=== PATIENT | female | born 1995 | race Caucasian/White ===

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

== ENCOUNTER 2017-05-07 12:18 | Emergency (ER) | payer OTHER ==
[~2017-05-07] VITALS: Ht 154.9 cm; Wt 71.9 kg
[~2017-05-07 12:18] MED LIST changes: +CEPH-443 PO; +IBUP-1542 PO
[2017-05-07 12:52] VITALS: Ht 154.9 cm; Wt 71.9 kg
[2017-05-07] MEDS ORDERED: FAMOTIDINE 20 MG TAB PO STA (14:47)
--- NOTE | 2017-05-07 14:51 | ERD ---
ER Documentation Chief Complaint Chief Complaint RUQ abdominal pain, nonradiating x2 days, no N/V/D HPI This 22 YO female presents to ED MIKA pain x 2 days, pain described as pressure. denies N/V/D , reports no BM x days, patient denies dysuria, nausea, vomiting, change in appetite, or possibility of , patient is on oral contraceptive pills ROS All systems reviewed and are negative except as per history of present illness. Medications Home Meds Active Scripts Cephalexin* (Keflex*) 500 Mg Capsule, 500 MG PO TID for 7 Days, CAP Prov:LOREN PETER MD 08/24/16 Ibuprofen* (Motrin*) 600 Mg Tab, 600 MG PO Q8 for 7 Days, #30 TAB Prov:LOREN PETER MD 08/24/16 Ranitidine Hcl* (Zantac*) 150 Mg Tablet, 150 MG PO BID Y for epigastric pain, # 30 TAB Prov:ZELDA COOPER NP 05/09/15 Omeprazole* (Prilosec*) 20 Mg Capsule.dr, 20 MG PO DAILY for 14 Days, CAP Prov:ZELDA COOPER NP 05/09/15 Reported Medications Vits W-Ca,Fe,Fa(<1MG) ( Vitamins) 1 Tab Tablet, 1 TAB PO 12/24/13 Allergies Allergies: Coded Allergies: No Known Allergies (Unverified Allergy, Unknown, 08/24/16) PMhx/Soc History of Surgery: No Anesthesia Reaction: No Hx Neurological Disorder: No Hx Respiratory Disorders: No Hx Cardiac Disorders: No Hx Psychiatric Problems: No Hx Miscellaneous Medical Probl: No Hx Alcohol Use: No Hx Substance Use: No Hx Tobacco Use: No Physical Exam Vitals Vital Signs Date Time Temp Pulse Resp B/P Pulse Ox O2 Delivery O2 Flow Rate FiO2 05/07/17 12:52 100.0 82 18 128/75 100 Vitals stable, triage notes reviewed Physical Exam Const: Well-nourished well-appearing well-hydrated 22-year-old female in no acute distress Resp: Respirations even and unlabored, clear to auscultation bilaterally Cardio: Regular rate and rhythm, no murmurs Abd: Abdomen symmetric, tympanic to percussion, generalized tenderness with increased sensitivity to right upper quadrant. No CVA tenderness Back: No midline or flank tenderness Neur: Awake and alert Psych: Normal Mood and Affect Result Diagram: 05/07/17 1500 05/07/17 1500 Results 24 hrs Laboratory Tests Test 05/07/17 14:50 05/07/17 15:00 Urine Color YELLOW Urine Clarity CLEAR Urine pH 6.0 Urine Specific [place] 1.014 Urine Ketones NEGATIVEmg/dL Urine Nitrite NEGATIVEmg/dL Urine Bilirubin NEGATIVEmg/dL Urine Urobilinogen NEGATIVEmg/dL Urine Leukocyte Esterase TRACELeu/ul Urine Microscopic RBC 3/HPF Urine Microscopic WBC 7/HPF Urine Squamous Epithelial Cells FEW/HPF Urine Bacteria FEW/HPF Urine Hemoglobin 1+mg/dL Urine Glucose NEGATIVEmg/dL Urine Total Protein NEGATIVEmg/dl White Blood Count 7.410^3/ul Red Blood Count 4.7310^6/ul Hemoglobin 13.5g/dl Hematocrit 40.8% Mean Corpuscular Volume 86.3fl Mean Corpuscular Hemoglobin 28.5pg Mean Corpuscular Hemoglobin Concent 33.1g/dl Red Cell Distribution Width 13.3% Platelet Count 36577^3/UL Mean Platelet Volume 10.0fl Neutrophils % 60.9% Lymphocytes % 30.3% Monocytes % 6.2% Eosinophils % 1.9% Basophils % 0.3% Nucleated Red Blood Cells % 0.0/100WBC Neutrophils # 4.510^3/ul Lymphocytes # 2.210^3/ul Monocytes # 0.510^3/ul Eosinophils # 0.110^3/ul Basophils # 0.010^3/ul Nucleated Red Blood Cells # 0.010^3/ul Sodium Level 143mmol/L Potassium Level 3.7mmol/L Chloride Level 106mmol/L Carbon Dioxide Level 25mmol/L Anion Gap 16 Blood Urea Nitrogen 7mg/dl Creatinine 0.75mg/dl Glucose Level 99mg/dl Calcium Level 9.4mg/dl Total Bilirubin 0.2mg/dl Direct Bilirubin 0.00mg/dl Indirect Bilirubin 0.2mg/dl Aspartate Amino Transf (AST/SGOT) 30IU/L Alanine Aminotransferase (ALT/SGPT) 63IU/L Alkaline Phosphatase 61IU/L Total Protein 7.8g/dl Albumin 4.3g/dl Globulin 3.50g/dl Albumin/Globulin Ratio 1.22 Lipase 107U/L Current Medications Medications (Trade) Dose Ordered Sig/Marcelino Route PRN Reason Start Time Stop Time Status Last Admin Dose Admin Famotidine (Pepcid) 20 mg ONCE STAT PO 05/07/17 14:47 05/07/17 14:51 DC 05/07/17 15:07 Ibuprofen (Motrin) 600 mg ONCE ONCE PO 05/07/17 15:00 05/07/17 15:01 DC 05/07/17 15:07 Interpretation text CBC shows no evidence of hemorrhage or infection Chemistry shows no evidence of significant electrolyte abnormalities or renal insufficiency Liver function tests shows no evidence of acute biliary or hepatic dysfunction Urinalysis positive for trace leukocytosis, no nitrates or microscopic hematuria , findings are likely related to contamination. Procedures/MDM PROCEDURE: US LIMITED ABDOMEN RIGHT UPPER QUADRANT CLINICAL INDICATION: Right upper quadrant abdominal pain TECHNIQUE: Multiple real-time images were acquired of the patient's right upper quadrant utilizing a high resolution transducer. COMPARISON: None FINDINGS: The pancreas is poorly visualized due to overlying bowel gas. The aorta and IVC are within normal limits. Hepatic morphology is within limits. There is normal homogeneous echotexture of the liver. The liver measures 13.9 cm in length. There is normal hepatic pedal flow of the portal vein. The gallbladder is visualized. No evidence of gallstones. No evidence of gallbladder wall thickening. The common bile duct is with normal limits measuring 3 mm. The right kidney measures 9.7 cm. The cortex and parenchymal with normal limits. No evidence of obstruction hydronephrosis. IMPRESSION: 1. No evidence of gallstones. Gallbladder and common bile duct are within normal limits. 2. Limited evaluation, as the pancreas is poorly visualized due to overlying bowel gas. Otherwise, unremarkable right upper quadrant ultrasound of the abdomen. Elly Vega, Physician Date Time This 22-year-old female presents to emergency department for evaluation of right upper quadrant tenderness, pain is described as pressure, denies nausea, vomiting, or fever, denies dysuria. Patient denies that symptoms are related to food and has never had pain like this in the past, patient reports symptomatic 2 days, has not had a bowel movement in the last 2 days, reports normally goes daily. Emergency room course includes history and physical exam, exam findings include tympanic abdomen with generalized abdominal tenderness with increased tenderness on the right upper tenderness, I have little suspicion for abdominal obstruction or appendicitis, differential diagnosis includes cholecystitis, cholelithiasis, pancreatitis, abdominal colic, constipation, and gas, diagnostic testing includes serology, and ultrasound imaging of gallbladder, serology is unremarkable for infection, blood loss, electrolyte imbalance, hepatitis, pancreatitis, urine is negative for urinary tract infection although trace leukocytes seen with no other qualifier, including dysuria, I have low suspicion for a urinary tract infection and patient will not receive treatment for UTI today. Ultrasound findings documents no evidence of gallstones, common bile duct within normal limits, pancreas is poorly visualized related to overlying gas, unremarkable right upper quadrant ultrasound, plan to deteriorate patient with MiraLAX and Mylanta, , instructed to follow-up with primary care physician if symptoms persist, return to emergency department for emergent reevaluation for worsening of current symptoms. Nausea, vomiting, fever, dysuria. Patient is stable with no new complaints during ER course, clinically there is no current evidence to suggest meningitis, sepsis, acute abdomen, acute or any other emergent condition appearing to require further evaluation or hospitalization. I feel the patient is stable for discharge at this time. I have discussed results, examination findings, the treatment plan with the patient and family present prior to discharge. Indications for emergent reevaluation, side effects of medication were also discussed. All questions were answered. Patient verbalizes understanding and agrees with plan of care. Departure Diagnosis: Primary Impression: Abdominal pain Abdominal location: generalized Qualified Code: R10.84 - Generalized abdominal pain Condition: Good Patient Instructions: Constipation (Adult), Diet, Low Gas Referrals: [facility] Additional Instructions: Thank you for for coming to [facility] for your care today. Please ask your nurse or provider if you have questions about your care today and do not leave until all your questions have been answered. Please use any medications given as directed and follow-up with your doctor (or the doctor you were referred to) in the next 2-3 days. If you do not have a primary care doctor you may follow up at the [facility] (listed below). You may also use motrin and tylenol as needed for fever and/or pain unless instructed otherwise by your provider or nurse. Indications for more urgent follow-up have been discussed, but you may return to the Emergency Department at ANY time for any worrisome or worsening symptoms. If you have abdominal pain, please know that no test or exam you received is perfect and you should follow up within 8 hours for continued pain. If you had any imaging studies today, such as an X-Ray or CT Scan, these studies will be reviewed later by a radiologist. You will be called if there are important findings that were not identified today, so make sure the contact information you provided at registration is correct. If you received any narcotic pain control medicine today, such as Vicodin, Morphine or Dilaudid, your coordination and judgment may be affected for a number of hours. Please do not drive or operate heavy machinery, and you may want someone to assist you at home. If you were given a prescription for narcotic medication, be aware that it is very addictive- use sparingly and only if necessary. SAMMI THOMAS May 07, 2017 14:51
[2017-05-07] MEDS ORDERED: IBUPROFEN 600 MG TAB PO ONE (15:00)
[2017-05-07 15:32] LABS: BASOPHILS % 0.3 % (0.0-2.0); EOSINOPHILS # 0.1 10^3/ul (0.0-0.5); EOSINOPHILS % 1.9 % (0.0-7.0); HEMATOCRIT 40.8 % (37.0-47.0); HEMOGLOBIN 13.5 g/dl (12.0-16.0); LYMPHOCYTES # 2.2 10^3/ul (0.8-2.9); LYMPHOCYTES % 30.3 % (18.0-55.0); MEAN CORPUSCULAR HEMOGLOBIN 28.5 pg (29.0-33.0); MEAN CORPUSCULAR HGB CONC 33.1 g/dl (32.0-37.0); MEAN CORPUSCULAR VOLUME 86.3 fl (72.0-104.0); MONOCYTE # 0.5 10^3/ul (0.3-0.9); MONOCYTES % 6.2 % (0.0-13.0); NEUTROPHIL # 4.5 10^3/ul (1.6-7.5); NEUTROPHILS % 60.9 % (30.0-74.0); PLATELET COUNT 223 10^3/UL (140-415); RED BLOOD COUNT 4.73 10^6/ul (4.20-5.40); RED CELL DISTRIBUTION WIDTH 13.3 % (11.5-14.5); WHITE BLOOD COUNT 7.4 10^3/ul (4.8-10.8)
[2017-05-07 15:34] LABS: ADD UMIC YES; UR ASCORBIC ACID NEGATIVE (NEGATIVE); UR BACTERIA FEW /HPF (NONE SEEN); UR BILIRUBIN (Dip) NEGATIVE (NEGATIVE); UR BLOOD (Dip) 1+ mg/dL (NEGATIVE); UR CLARITY CLEAR (CLEAR); UR COLOR YELLOW (YELLOW); UR GLUCOSE (Dip) NEGATIVE (NEGATIVE); UR KETONES (Dip) NEGATIVE (NEGATIVE); UR LEUKOCYTE ESTERASE (Dip) TRACE Leu/ul (NEGATIVE); UR NITRITE (Dip) NEGATIVE (NEGATIVE); UR RBC 3 /HPF (0-5); UR SPECIFIC GRAVITY (Dip) 1.014 (1.003-1.030); UR SQUAMOUS EPITHELIAL CELL FEW /HPF (FEW); UR TOTAL PROTEIN (Dip) NEGATIVE (NEGATIVE); UR UROBILINOGEN (Dip) NEGATIVE (NEGATIVE)
--- NOTE | 2017-05-07 15:37 | RADRPT ---
PROCEDURE: US LIMITED ABDOMEN RIGHT UPPER QUADRANT CLINICAL INDICATION: Right upper quadrant abdominal pain TECHNIQUE: Multiple real-time images were acquired of the patient's right upper quadrant utilizing a high resolution transducer. COMPARISON: None FINDINGS: The pancreas is poorly visualized due to overlying bowel gas. The aorta and IVC are within normal limits. Hepatic morphology is within limits. There is normal homogeneous echotexture of the liver. The liver measures 13.9 cm in length. There is normal hepatic pedal flow of the portal vein. The gallbladder is visualized. No evidence of gallstones. No evidence of gallbladder wall thickening . The common bile duct is with normal limits measuring 3 mm. The right kidney measures 9.7 cm. The cortex and parenchymal with normal limits. No evidence of obst ruction hydronephrosis. IMPRESSION: 1. No evidence of gallstones. Gallbladder and common bile duct are within normal limits. 2. Limited evaluation, as the pancreas is poorly visualized due to overlying bowel gas. Otherwise, u nremarkable right upper quadrant ultrasound of the abdomen. RPTAT: AAPP Physician Rick Date Time Electronically viewed and signed by Physician Rick on 05/07/2017 15:36 GLORIA/
[2017-05-07 15:55] LABS: ALBUMIN 4.3 g/dl (3.3-4.9); ALBUMIN/GLOBULIN RATIO 1.22; BILIRUBIN,INDIRECT 0.2 mg/dl (0-1.1); BILIRUBIN,TOTAL 0.2 mg/dl (0.2-1.3); CALCIUM 9.4 mg/dl (8.4-10.2); CREATININE 0.75 mg/dl (0.44-1.00); POTASSIUM 3.7 mmol/L (3.5-5.1); TOTAL PROTEIN 7.8 g/dl (6.1-8.1)
[2017-05-07] MEDS ORDERED: MAG-19 PO (16:21)
[2017-05-07] MEDS ORDERED: POLY17PO6 PO (16:21)
== END 2017-05-07 16:51 | disposition home or self-care (01) ==
LOC: FTE 12:18
DX: R10.84 Generalized abdominal pain (principal)
CPT/HCPCS: 36415; 76705; 80053; 81001; 83690; 85025; Z7502; Z7610

== ENCOUNTER 2017-12-17 08:55 | Emergency (ER) | END 2017-12-17 09:47 | disposition home or self-care (01) ==

== ENCOUNTER 2018-11-07 09:38 | Emergency (ER) | payer MEDICAID ==
[~2018-11-07] VITALS: Ht 152.4 cm; Wt 72.8 kg
[~2018-11-07 09:38] MED LIST changes: +MAG-19 PO; +PHEN-537 PO; +POLY17PO6 PO; +RANI150T35 PO; -RANI150T9 PO
[2018-11-07 09:41] VITALS: BP 119/76; PULSE 78; RESP 18; Ht 152.4 cm; Wt 72.8 kg
[2018-11-07] MEDS ORDERED: ERYT1OIN6 BOTH EYES (10:46)
--- NOTE | 2018-11-07 10:49 | ERD ---
ER Documentation Chief Complaint Chief Complaint l.eye redness, itching x 4 days HPI 23-year-old female presents with itchiness in her left medial thigh. She states she notices the veins in her eyes are more red than usual. She does wear glasses. She has not had any pus or drainage from the eyes. No fevers. No nausea or vomiting. ROS All systems reviewed and are negative except as per history of present illness. Medications Home Meds Active Scripts Erythromycin Base (Erythromycin) 1 Gm Oint...g., 1 APPLIC BOTH EYES QID for 7 Days Prov:TORI LEOS PA-C 11/07/18 Phenazopyridine Hcl* (Pyridium*) 100 Mg Tab, 100 MG PO TID PRN for URINARY PAIN, #8 TAB Prov:THUY WEBSTER PA-C 12/17/17 Cephalexin* (Keflex*) 500 Mg Capsule, 500 MG PO BID for 7 Days, CAP Prov:THUY WEBSTER PA-C 12/17/17 Magaldrate/Simethicone* (Mylanta*) 355 Ml Susp, 30 ML PO QID PRN for GASTROINTESTINAL UPSET, #1 BOTTLE Prov:WILLIAM,SAMMI 05/07/17 Polyethylene Glycol* (Miralax*) 17 Gm Powd.pack, 17 GM PO DAILY, #7 Prov:WILLIAM,SAMMI 05/07/17 Cephalexin* (Keflex*) 500 Mg Capsule, 500 MG PO TID for 7 Days, CAP Prov:LOREN PETER MD 08/24/16 Ibuprofen* (Motrin*) 600 Mg Tab, 600 MG PO Q8 for 7 Days, #30 TAB Prov:LORNE PETER MD 08/24/16 Ranitidine Hcl* (Zantac*) 150 Mg Tablet, 150 MG PO BID PRN for epigastric pain, #30 TAB Prov:ZELDA COOPER NP 05/09/15 Omeprazole* (Prilosec*) 20 Mg Capsule.dr, 20 MG PO DAILY for 14 Days, CAP Prov:ZELDA COOPER NP 05/09/15 Reported Medications Vits W-Ca,Fe,Fa(<1MG) ( Vitamins) 1 Tab Tablet, 1 TAB PO 12/24/13 Allergies Allergies: Coded Allergies: No Known Allergies (Unverified Allergy, Unknown, 08/24/16) PMhx/Soc Medical and Surgical Hx: pt denies Medical Hx, pt denies Surgical Hx History of Surgery: No Anesthesia Reaction: No Hx Neurological Disorder: No Hx Respiratory Disorders: No Hx Cardiac Disorders: No Hx Psychiatric Problems: No Hx Miscellaneous Medical Probl: No Hx Alcohol Use: No Hx Substance Use: No Hx Tobacco Use: No Smoking Status: Never smoker FmHx Family History: No diabetes Physical Exam Vitals Vital Signs Date Temp Pulse Resp B/P (MAP) Pulse Ox O2 O2 Flow FiO2 Time Delivery Rate 11/07/18 97.9 78 18 119/76 98 09:41 (90) Physical Exam INITIAL VITAL SIGNS: Reviewed by me GENERAL: Awake, alert and oriented x 4, well appearing, nontoxic, speaking in full sentences. No acute distress HEAD: Atraumatic NECK: Supple. No masses. Full range of motion. No meningismus. No midline tenderness. EYES: EOMI. PERRL. Normal conj RESPIRATORY: Clear to auscultation bilaterally. Symmetric chest wall rise. No wheezing or rales. No accessory muscle use. CV: Regular rate and rhythm. No murmurs, rubs, or gallops. Procedures/MDM Patient is concerned that she has had some left eye irritation and notices the veins in her eyes have been more red than usual. This is likely allergic. Does not appear to be bacterial. Exam is grossly normal. Erythromycin ophthalmic oi ntment prescription given. Patient counseled regarding my diagnostic impression and care plan. Prior to discharge all questions answered. Pt agrees with treatment plan and understands strict return precautions. Pt is instructed to follow up with primary care provider within 24-48 hours. Precautionary instructions provided including instructions to return to the ER if not improving or for any worsening or changing symptoms or concerns. Departure Diagnosis: Primary Impression: Eye problem Condition: Stable Additional Instructions: Call your primary care doctor TOMORROW for an appointment during the next 1-2 days.See the doctor sooner or return here if your condition worsens before your appointment time. TORI LEOS PA-C Nov 07, 2018 10:49
== END 2018-11-07 11:18 | disposition home or self-care (01) ==
LOC: FTE 09:38
DX: H57.9 Unspecified disorder of eye and adnexa (principal)
CPT/HCPCS: 99283